=== PATIENT | female | born 1995 | race African-American/Black ===

== ENCOUNTER 2022-06-23 04:10 | Emergency (ER) | payer MEDICAID ==
[~2022-06-23] VITALS: Ht 170.2 cm; Wt 63.5 kg
[2022-06-23 04:26] VITALS: BP 124/67
--- NOTE | 2022-06-23 04:32 | NUR ---
TO LOBBY FOLLOWING TRIAGE
--- NOTE | 2022-06-23 04:36 | NUR ---
EXAMINED BY DR NIETO
[2022-06-23] MEDS ORDERED: LIDOCAINE 5% 1 EA PATCH TP STA (04:38)
[2022-06-23] MEDS ORDERED: KETOROLAC 30 MG/ML VIAL IM ONE (04:40)
[2022-06-23] MEDS ORDERED: LID5T TP (05:21)
[2022-06-23] MEDS ORDERED: CYCL-711 PO (05:21)
[2022-06-23 05:40] VITALS: BP 124/67
--- NOTE | 2022-06-23 05:40 | NUR ---
Patient discharged with v/s stable. Written and verbal after care instructions given and explained. Patient alert, oriented and verbalized understanding of instructions. Ambulatory with steady gait. All questions addressed prior to discharge. ID band removed. Patient advised to follow up with PMD. Rx of FLEXERIL, LIDODERM given. Patient educated on indication of medication including possible reaction and side effects. Opportunity to ask questions provided and answered.
== END 2022-06-23 05:40 | disposition home or self-care (01) ==
LOC: MED 04:10
DX: S16.1XXA Strain of muscle, fascia and tendon at neck level, initial encounter (principal); X58.XXXA Exposure to other specified factors, initial encounter; Y93.89 Activity, other specified; Y92.89 Other specified places as the place of occurrence of the external cause; Y99.8 Other external cause status
CPT/HCPCS: 73030; 96372; 99283; J1885; Q0092